=== PATIENT | female | born 1965 ===

== ENCOUNTER 2025-03-12 16:12 | Emergency (ER) | payer OTHER, SELFPAY ==
[2025-03-12 16:15] VITALS: BP 148/63
[2025-03-12 16:47] LABS: % Basophils 0.5 % (0-2); % Eosinophils 0.8 % (0-6); % Immature Granulocytes 0.4 % (0-0.5); % Lymphocytes 20.8 % (20.5-51.1); % Neutrophils 71.5 % (42.2-75.2); Absolute Eosinophils 0.1 10^3/uL (0-0.7); Absolute Lymphocytes 1.8 10^3/uL (1.2-3.4); Absolute Monocytes 0.5 10^3/uL (0.1-0.6); Hematocrit 39.3 % (37.0-47.0); Hemoglobin 13.5 g/dL (12.0-16.0); Mean Corp Hgb Conc. 34.4 g/dL (33.0-37.0); Mean Corpuscular Hgb 28.5 pg (27.0-31.0); Mean Corpuscular Volume 82.9 fL (81.0-99.0); Mean Platelet Volume 10.1 fL (7.4-10.4); Nucleated Red Blood Cells % 0 %; Platelet Count 283 10^3/uL (130-400); Red Blood Cell Count 4.74 10^6/uL (4.20-5.40); Red Cell Dist. Width 14.7 % (11.5-14.5); White Blood Cell Count 8.5 10^3/uL (4.8-10.8)
[2025-03-12 16:57] LABS: ALT (SGPT) 12 U/L (0-35); AST (SGOT) 16 U/L (14-36); Albumin 4.6 g/dl (3.5-5.0); Alkaline Phosphatase 49 U/L (38-126); Blood Urea Nitrogen 19 mg/dl (7-17); Calcium 9.5 mg/dl (8.4-10.2); Carbon Dioxide 23 mmol/L (22-30); Chloride 109 mmol/L (98-107); Glucose 153 mg/dl (70-99); Sodium 141 mmol/L (135-145); Total Bilirubin 0.5 mg/dl (0.2-1.3); Total Protein 6.8 g/dl (6.3-8.2); eGFR > 60.00
--- NOTE | 2025-03-12 18:53 | ED.GENMED ---
History of Present Illness
General
Chief Complaint: Weakness
Time Seen by Provider: 03/12/25 17:42
History of Present Illness
History of Present Illness:
59-year-old female with history of TIA and anxiety presenting to the emergency department for multiple complaints. Patient reports this morning she had dizziness, described as a spinning sensation. She also reports generalized fatigue and
weakness. She reports secondary to her symptoms, she did fall to the ground, denies head strike. Reports that her symptoms do not feel consistent with her typical TIA, which usually comes with visual symptoms. Notes that she has been following
with a primary care doctor for vague neurologic symptoms that have been ongoing for several months including weakness, paresthesias. She is currently on Brilinta. She is unsure whether or not this morning her symptoms were secondary to a panic
attack. Reports when symptoms came on, she was also feeling short of breath. Her friend gave her her inhaler and some Tylenol and she since notes some improvement. Residual symptoms include generalized fatigue and generalized weakness. Also
reports at onset of symptoms she was having some chest pain which has improved as well. Denies fever or recent illness. Denies additional acute medical complaints
Phy Exam
Physical Exam
Physical Exam:
General: Well-appearing, no clinical signs of dehydration, nontoxic and in no acute distress
HEENT: protecting airway, pupils equal and reactive, extraocular movements intact
Neck: appears supple
CV: Normal heart rate, regular rhythm
Resp: No accessory muscle use, no increased work of breathing, lungs clear to auscultation bilaterally
Abd: No distention
Extremities: No deformities, no swelling, no erythema
Neuro: alert, no focal neurologic deficit
: deferred
Rectal: deferred
Psych: Normal affect
Skin: Intact
Course
Orders/Labs/Results
Orders:
Orders
03/12/25 16:23
Electrocardiogram (*1) Urgent
Reason for Study: Fatigue / Weakness
EKG- Treatment ONCE
03/12/25 16:30
Complete Blood Count/With Diff Urgent
Comprehensive Metabolic Panel Urgent
03/12/25 16:36
CT Head W/o Iv Contrast Urgent
Comment:
Reason For Exam: weakness, tia history
Abnormal Lab Results
03/12/25
16:30
RDW 14.7 H %
(11.5-14.5)
Chloride 109 H mmol/L
(98-107)
BUN 19 H mg/dl
(7-17)
Glucose 153 H mg/dl
(70-99)
03/12/25 16:30
03/12/25 16:30
Vital Signs
Initial and Last Documented VS:
Initial Vital Signs
Temp Pulse Resp BP Pulse Ox
98.3 F 95 20 148/63 96
03/12/25 16:15 03/12/25 16:15 03/12/25 16:15 03/12/25 16:15 03/12/25 16:15
Last Documented Vital Signs
Temp Pulse Resp BP Pulse Ox
98.3 F 95 20 148/63 96
03/12/25 16:15 03/12/25 16:15 03/12/25 16:15 03/12/25 16:15 03/12/25 16:15
MDM/Problems Addressed
MDM/Problems Addressed:
59-year-old female with history of TIA and anxiety presenting to the emergency department for dizziness, fatigue, chest pain, difficulty breathing. Vital signs on arrival are normal.
On exam, verbally, no acute discomfort. Notes that a lot of her symptoms have improved, but still having residual fatigue. She is unsure whether or not her symptoms are from an anxiety attack/panic attack. Patient does appear very anxious. EKG
obtained on arrival, sinus rhythm without acute evidence of ischemia. Without present concern for ACS. Lungs clear to auscultation, no increased work of breathing, without concern for acute pulmonary process. No present focal neurologic deficits
on exam. Patient had nursing protocol placed prior to including CT brain imaging. CT brain is negative for acute process. Without present concern for stroke. Suspect vertiginous component. Patient is declining any medications for the dizziness
at this time. Patient also had screening laboratory analysis, unremarkable. Patient notes that she is generally feeling better since symptom onset and has a follow-up appoint with her primary care doctor. She is also scheduled to get outpatient
MRI imaging of her brain on 03/15, as well as CT imaging of her abdomen on 03/14 for several months of GI symptoms. No emergent indication for these images at this time. Feel stable for discharge with continued outpatient monitoring. Return
precautions discussed and patient verbalized understanding
*EKG
Interpreted by ED Provider?: Yes
EKG Intrepretation Date: 03/12/25
EKG Intrepretation Time: 18:56
Interpretation: normal
Heart Rate: 66
Rate: normal
Rhythm: sinus
[place]: normal axis
Interval: normal interval
QRS Pattern: normal QRS
Ischemia: no ischemia
*Critical Care Note
Total Time (30-74mins, 75-104mins- exclusive of procedures): Not Applicable
ED Attending Note
-
Portions of this chart may have been created with voice recognition software.� Occasional wrong word or��sound alike� substitutions may have occurred due to the inherent limitations of voice recognition software.
Discharge Plan
Departure
Referrals:
UNKNOWN - PT DOES,NOT KNOW [Family Provider] -
Interventions
Interventions:
*Risk Screen - Suicide Last Done: 03/12/25 16:22
*Neglect/Abuse Screening Last Done: 03/12/25 16:22
*ED COVID-19 Vaccine History Last Done: 03/12/25 16:22
Discharge Date and Time
Print Language: ARMENIAN
[2025-03-12 20:02] VITALS: BP 96/47
== END 2025-03-12 19:42 | disposition home or self-care (01) ==
LOC: EMR 16:12
PROVIDERS: EMERGENCY PHYSICIAN Student in an Organized Health Care Education/Training Program
DX: R42 Dizziness and giddiness (principal); R53.83 Other fatigue; Z79.02 Long term (current) use of antithrombotics/antiplatelets; Z86.73 Personal history of transient ischemic attack (TIA), and cerebral infarction without residual deficits
CPT/HCPCS: 99284; 70450; 80053; 85025; 93005